=== PATIENT | male | born 1940 | race Caucasian/White ===

== ENCOUNTER 2016-10-20 08:46 | Day surgery (SDC) | payer MEDICARE, BC ==
[~2016-10-20 08:46] MED LIST: ACETAMINOPHEN 1,000 MG/100 ML BTL IV ONE; CEFAZOLIN 2 Gram 2 GM/50 ML BAG IVPB ONE
[2016-10-20 08:57] LABS: BASO % 1.2 % (0-6); GRAN % 56.3 % (47-80); HEMATOCRIT 46.2 % (42.0-52.0); HEMOGLOBIN 15.3 gm/dl (14.0-18.0); LYMPH % 29.3 % (16-45); MEAN CELL VOLUME 91.1 fl (81-97); MEAN CORPUSCULAR HEMOGLOBIN 30.2 pg (27-33); MEAN CORPUSCULAR HGB CONC 33.1 g/dl (32-36); MONO % 8.2 % (0-9); PLATELET COUNT 275 K/uL (130-400); RED BLOOD COUNT 5.07 M/uL (4.40-5.70); RED CELL DISTRIBUTION WIDTH 12.9 % (11.5-14.5)
[2016-10-20 09:14] LABS: ANION GAP 7.8 (7-16); BLOOD UREA NITROGEN 12 mg/dL (9-20); CARBON DIOXIDE 30.2 mmol/L (22-30); CREATININE 1.1 mg/dL (0.66-1.25); EST GLOMERULAR FILTRATION RATE > 60 ml/min; GLUCOSE,RANDOM 100 mg/dL (70-110)
[2016-10-20] MEDS ORDERED: PROPOFOL 10 MG/ML VIAL IV ONE (14:00)
[2016-10-20] MEDS ORDERED: KETOROLAC 30 MG/ML VIAL IVP ONE (14:00)
[2016-10-20] MEDS ORDERED: DEXAMETHASONE 4 MG/ML 1ML VIAL IVP ONE (14:00)
[2016-10-20] MEDS ORDERED: ROPIVACAINE HCL (NAROPIN) /PF 5MG/ML 20ML VIAL IV ONE (14:00)
[2016-10-20] MEDS ORDERED: MIDAZOLAM HCL 2MG/2ML VIAL IV ONE (14:00)
[2016-10-20] MEDS ORDERED: LIDOCAINE 2% MDV (20MG/ML) 20ML VIAL IV ONE (14:00)
[2016-10-20] MEDS ORDERED: SEVOFLURANE 250 ML INH ONE (14:00)
[2016-10-20] MEDS ORDERED: BUPIVACAINE 0.25% W/EPI MPF 30ML VIAL IVP ONE (14:25)
--- NOTE | 2016-10-23 08:57 | Operative Note ---
DATE OF SURGERY: 10/20/2016 Surgeon: Favian Wong DO PREOPERATIVE DIAGNOSIS: Reducible right inguinal hernia. POSTOPERATIVE DIAGNOSIS: Reducible right inguinal hernia. OPERATION: Open right inguinal herniorrhaphy with mesh. Indication: The patient is a 76-year-old male who has had ongoing right bending-over pain. He did have a reducible hernia on exam. We did discuss repair versus observation. He desires surgical intervention. Risks include bleeding, infection, acute or chronic pain, recurrence. He understood this fully. Thereafter, consent signed, questions answered. PROCEDURE: The patient was taken to the operating room and placed in a supine position. General anesthesia was administered per the department of anesthesia. At this time, an ilioinguinal nerve block was done per the department of anesthesia. His right inguinal region was shaved of hair and prepped and draped in the usual fashion. At this time, the oblique region was anesthetized with a total of 4 mL of 0.25% Sensorcaine with epinephrine. A 4 cm incision was made. This was carried down through Micaela layer to the aponeurosis of the external oblique. This was cleaned off and a [place] was made with a scalpel blade. This was enlarged through the superficial inguinal ring with Metzenbaum scissors. Care was taken not to injure the underlying ilial nerve or spermatic cord. At this time, superior and inferior flaps were developed and a [place] was placed on the spermatic cord. This was dissected free from underlying transversalis fascia and retracted laterally with a Marko drain. The floor was inspected and noted to be free of any direct herniation. At this time, cremasteric fibers were taken down. There was a moderate-size cord lipoma as well as indirect hernia sac noted. High ligations of each were done. At this time, a right-sided Prograf mesh was obtained. This was placed in the floor of the inguinal canal with excellent overlap of the pubic tubercle. Stitches went in at the level of the pubic tubercle portion on the inguinal ligament and the internal oblique aponeurosis. At this time, the aponeurosis of the external oblique was closed over the cord with 2-0 Vicryl. Micaela layer was closed with 3-0 Vicryl and the skin was closed with 4-0 Vicryl. He was taken to the recovery room in satisfactory condition. FINDINGS AT THE TIME OF SURGERY: Right inguinal hernia, indirect, repaired as above. CC: COLLEEN CHRISTY MD, FACP CRISSD
== END 2016-10-20 13:55 | disposition home or self-care (01) ==
LOC: SUR 08:46
PROVIDERS: ATTEND Surgery
DX: K40.90 Unilateral inguinal hernia, without obstruction or gangrene, not specified as recurrent (principal); E78.00 Pure hypercholesterolemia, unspecified
CPT/HCPCS: 49505; 64425; 00830; 85025; 80048; 88302; 76942; J1885; J0690; J2795

== ENCOUNTER 2018-11-09 17:13 | Emergency (ER) | payer MEDICARE, BC ==
[2018-11-09] MEDS ORDERED: Diph,Pert(Acell),Tet Vac 0.5 ML SYR IM ONE (17:30)
--- NOTE | 2018-11-09 17:35 | Emergency Department Record ---
History of Present Illness - General Chief Complaint: Laceration(s) Stated Complaint: RT HAND RING FINGER LAC Time Seen by Provider: 11/09/18 17:29 Source: Patient, Family () Mode of Arrival: Ambulatory Limitations: No limitations - History of Present Illness Initial Commments: Pt from home where he was sharpening a knife and slipped cutting the tip of his right index finger. Pt is left hand dominate. Bleeding on arrival. Onset/Timin -: Minutes(s) Place: Home, Outdoors Context: Accidental, Sharp object use Associated Symptoms: None Treatments Prior to Arrival: Bandage - Related Data Hx Tetanus Toxoid Vaccination: Yes Patient Tetanus UTD (within 5 yrs): No Home Medications Medication Instructions Recorded Confirmed Last Taken Simvastatin 40 mg PO DAILY 11/09/18 11/09/18 Unknown Allergies Allergy/AdvReac Type Severity Reaction Status Date / Time morphine AdvReac Intermediate RASH Verified 10/09/16 15:48 Travel Screening - Travel/Exposure Within Last 30 Days Have you traveled within the last 30 days?: No Review of Systems Constitutional: Denies: Chills, Fever Eyes: Denies: Eye discharge ENT: Denies: Congestion Respiratory: Denies: Cough Cardiovascular: Denies: Chest pain Endocrine: Denies: Fatigue Gastrointestinal: Denies: Abdominal pain Skin: Reports: As per HPI Past Medical History - SOCIAL HISTORY Smoking Status: Former smoker - RESPIRATORY Hx Respiratory Disorders: Yes Hx Bronchitis: Yes Hx Pneumonia: Yes - CARDIOVASCULAR Hx Cardio Disorders: Yes Hx Hypotension: Yes Hx Palpitations: Yes (coffee related-"50 yrs ago") Comment:: high cholesterol - NEURO Hx Neuro Disorders: Yes Comment:: wears bilat hearing aides-NENANA - GI Hx GI Disorders: No Hx Abdominal Pain: Yes - Hx Genitourinary Disorders: Yes Hx Bladder Problem: Yes (urinary frequency(coffee related)) Hx Prostate Problems: Yes (?) - ENDOCRINE Hx Endocrine Disorders: No - MUSCULOSKELETAL Hx Musculoskeletal Disorders: Yes Hx Arthritis: Yes (hands) - PSYCH Hx Psych Problems: No - HEMATOLOGY/ONCOLOGY Hx Hematology/Oncology Disorders: No Family Medical History Any Significant Family History?: Yes Hx Cancer: Mother, Children *Cancer Comment: Mom has brain CA; son-melanoma Hx Resp Disorders: Father *Resp Comment: COPD Physical Exam - General General Appearance: Alert, Oriented x3, Cooperative, No acute distress - Head Head exam: Atraumatic - Eye Eye exam: PERRL - ENT ENT exam: Mucous membranes moist - Respiratory Respiratory exam: negative: Respiratory distress - Extremities Extremities exam: Other (right index finger with 0.5cm area of superficial skin avulsion. Active bleeding. ) Image of Finger Tip: 1 - 0.5cm avulsion. LIF - Neurological Neurological exam: Alert, Normal gait, Oriented X3 - Psychiatric Psychiatric exam: Normal affect, Normal mood - Skin Skin exam: Normal color. negative: Rash Course Vital Signs 11/09/18 17:15 Temperature 98.1 F Pulse Rate 82 Respiratory 18 Rate Blood Pressure 178/115 Pulse Ox 98 - Reevaluation(s) Reevaluation #1: 11/09/18 17:33 Right Index finger with avulsion injury. Local 1cc of 1% lido with epi under avulsion with control of bleeding. Silver nitrate cautery to area. Excellent hemostasis. Dressing applied. Tolerated well. Disposition Disposition: Discharge Clinical Impression: Laceration of right index finger Qualifiers: Encounter type: initial encounter Damage to nail status: with damage Foreign body presence: without foreign body Qualified Code(s): S61.310A - Laceration without foreign body of right index finger with damage to nail, initial encounter Condition: (1) Good Instructions: Laceration (ED) Additional Instructions: No sutures were needed. Keep dressing dry for 48 hours then clean gently with soap and water and dressing. return as needed. Time of Disposition: 17:37 Quality - Quality Measures Quality Measures: N/A - Blood Pressure Screening Does Patient Have Any of the Following: No Blood Pressure Classification: Hypertensive Reading Systolic Measurement: 178 Diastolic Measurement: 115 Screening for High Blood Pressure: < Pre-Hypertensive BP, F/U Documented > [[id number]] Pre-Hypertensive Follow-up Interventions: Follow-up with rescreen every year.
== END 2018-11-09 17:50 | disposition home or self-care (01) ==
LOC: ER 17:13
DX: S61.210A Laceration without foreign body of right index finger without damage to nail, initial encounter (principal); W26.0XXA Contact with knife, initial encounter; Y92.009 Unspecified place in unspecified non-institutional (private) residence as the place of occurrence of the external cause
CPT/HCPCS: 12001; 90715; 96372; 99283